=== PATIENT | female | born 1985 | race African-American/Black ===

== ENCOUNTER 2024-12-05 20:36 | Emergency (ER) | payer OTHER, MEDICAID ==
[~2024-12-05] VITALS: Ht 165.1 cm; Wt 75.0 kg
[2024-12-05 20:41] VITALS: O2SAT 100
[2024-12-05] MEDS: ONDANSETRON 4MG ODT PO ONE (22:28)
[2024-12-05] MEDS: KETOROLAC 15MG/ML VIAL IM ONE (22:28)
[2024-12-05 22:32] LABS: CLARITY URINE CLEAR (CLEAR); COLOR URINE YELLOW (YELLOW); GLUCOSE URINE NEGATIVE (NEGATIVE); KETONES URINE NEGATIVE (NEGATIVE); LEUKOCYTE ESTERASE URINE TRACE (NEGATIVE); NITRITE URINE NEGATIVE (NEGATIVE); OCCULT BLOOD URINE NEGATIVE (NEGATIVE); PH URINE 6.0 (4.5-8.0); PROTEIN URINE NEGATIVE (NEGATIVE); SPECIFIC GRAVITY URINE 1.016 (1.005-1.030); UROBILINOGEN URINE 0.2 E.U./dL (0.2-1.0)
[2024-12-05 22:41] LABS: BASOPHILS % 0.4 % (0.0-2.0); EOSINOPHILS % 0.7 % (0.0-5.0); HEMATOCRIT. 36.5 % (36.0-48.0); HEMOGLOBIN. 11.8 g/dL (12.0-16.0); LYMPHOCYTES % 19.1 % (20.0-50.0); MEAN PLATELET VOLUME 7.0 fl (7.4-10.4); MONOCYTES % 5.2 % (2.0-8.0); NEUTROPHILS % 74.6 % (40.0-76.0); PLATELET 409 x1000/uL (130-400); RED BLOOD CELL COUNT 4.64 mill/uL (4.2-5.4); RED CELL DISTRIBUTION WIDTH 15.8 % (11.6-14.6)
[2024-12-05 22:47] LABS: RBC URINE 0-2 /hpf (0-2); SQUAMOUS EPITHELIAL CELL URINE 1+ /lpf (RARE/1+)
[2024-12-05 22:48] LABS: BACTERIA URINE TRACE
[2024-12-05 22:52] LABS: CREATININE 0.9 mg/dL (0.6-1.0); HCG SCREEN NEGATIVE; INR 1.0; UREA NITROGEN BLOOD 7 mg/dL (9-23)
[2024-12-05 22:54] LABS: ASPARTATE AMINOTRANSFERASE 10 IU/L (<34)
[2024-12-05 22:55] LABS: BILIRUBIN DIRECT 0.1 mg/dL (<=3.0); BILIRUBIN TOTAL 0.3 mg/dL (0.1-1.0); PROTEIN TOTAL 7.7 g/dL (6.0-8.3)
[2024-12-06] MEDS ORDERED: TRAM50TA3 MT (02:03)
[2024-12-06] MEDS ORDERED: NITR100C MT (02:08)
[2024-12-06] MEDS: TRAMADOL 50MG TABLET PO ONE (02:25)
[2024-12-06 02:26] VITALS: BP 106/67; PULSE 64; RESP 12; TEMP 36.8; O2SAT 98
== END 2024-12-06 02:58 | disposition home or self-care (01) ==
LOC: ER 20:44 → CMPBEDREQ 12-06 07:49
DX: N28.1 Cyst of kidney, acquired (principal); R10.31 Right lower quadrant pain; R11.0 Nausea; J45.909 Unspecified asthma, uncomplicated; Z90.49 Acquired absence of other specified parts of digestive tract; Z79.899 Other long term (current) drug therapy
CPT/HCPCS: 99285; 74176; 80076; 80048; 81003; 84703; 83690; 85025; 85610; 36415; 96372; J1885; Q0162